=== PATIENT | male | born 1970 | race Caucasian/White ===

== ENCOUNTER 2017-08-19 14:15 | Emergency (ER) | payer MEDICARE, MEDICAID ==
[~2017-08-19] VITALS: Ht 175.3 cm; Wt 106.8 kg
[~2017-08-19 14:15] MED LIST: ARIP5TAB49; BACDS PO; BACL20TA84; BENZ-16 PO; CEPH-571 PO; CHLO25CA10 PO; CITA40TA; FAMO-1 PO; FAMO20TA41 PO; FAMO20TA44 PO; HYDR-3965 PO; LOPE1TAB46 PO; LORA1TAB; NORT25CA87; OMEP20CA10 PO; PRED20TA PO; SUCR1ORA2 PO
[2017-08-19 14:38] VITALS: BP 145/103
[2017-08-19] MEDS ORDERED: IBUP-1984 PO (16:57)
== END 2017-08-19 17:09 | disposition home or self-care (01) ==
LOC: ER 14:16
DX: M25.561 Pain in right knee (principal); I10 Essential (primary) hypertension; F12.10 Cannabis abuse, uncomplicated; Z59.0 Homelessness; Z56.0 Unemployment, unspecified; Z79.899 Other long term (current) drug therapy
CPT/HCPCS: 29505; 73564; 99284

== ENCOUNTER 2021-02-25 09:55 | Emergency (ER) | payer MEDICARE, MEDICAID ==
[~2021-02-25] VITALS: Ht 175.3 cm; Wt 91.8 kg
[~2021-02-25 09:55] MED LIST changes: -OMEP20CA10 PO; +OMEP20CA15 PO
[2021-02-25 10:11] VITALS: BP 150/87
== END 2021-02-25 12:54 | disposition home or self-care (01) ==
LOC: ER 09:55
DX: M79.642 Pain in left hand (principal); F41.9 Anxiety disorder, unspecified; I10 Essential (primary) hypertension; F32.9 Major depressive disorder, single episode, unspecified; F17.200 Nicotine dependence, unspecified, uncomplicated; F12.90 Cannabis use, unspecified, uncomplicated; Z98.890 Other specified postprocedural states; Z72.89 Other problems related to lifestyle; Z56.0 Unemployment, unspecified; Z79.2 Long term (current) use of antibiotics; Z79.899 Other long term (current) drug therapy
CPT/HCPCS: 73130; 99283

== ENCOUNTER 2021-09-10 11:58 | Emergency (ER) | payer MEDICARE, MEDICAID ==
[~2021-09-10] VITALS: Ht 175.3 cm; Wt 99.0 kg
[2021-09-10 12:23] VITALS: BP 123/78
== END 2021-09-10 13:35 | disposition home or self-care (01) ==
LOC: ER 11:58
DX: S66.912A Strain of unspecified muscle, fascia and tendon at wrist and hand level, left hand, initial encounter (principal); S66.911A Strain of unspecified muscle, fascia and tendon at wrist and hand level, right hand, initial encounter; G56.03 Carpal tunnel syndrome, bilateral upper limbs; F12.90 Cannabis use, unspecified, uncomplicated; Z87.19 Personal history of other diseases of the digestive system; Z72.89 Other problems related to lifestyle; Z56.0 Unemployment, unspecified; Z98.890 Other specified postprocedural states; Z79.899 Other long term (current) drug therapy; Z79.2 Long term (current) use of antibiotics; X58.XXXA Exposure to other specified factors, initial encounter; Y93.89 Activity, other specified; Y92.89 Other specified places as the place of occurrence of the external cause; Y99.8 Other external cause status
CPT/HCPCS: 29260; 99283; L3908; 29125

== ENCOUNTER 2021-10-29 07:30 | Emergency (ER) | payer MEDICARE, MEDICAID ==
[~2021-10-29] VITALS: Ht 175.3 cm; Wt 100.0 kg
[2021-10-29 07:34] VITALS: BP 141/85
[2021-10-29] MEDS ORDERED: GABA-530 PO (09:32)
[2021-10-29] MEDS ORDERED: ACYC-129 PO (09:32)
== END 2021-10-29 09:39 | disposition home or self-care (01) ==
LOC: ER 07:30
DX: B02.9 Zoster without complications (principal); I10 Essential (primary) hypertension; F31.9 Bipolar disorder, unspecified; Z56.0 Unemployment, unspecified; Z79.899 Other long term (current) drug therapy
CPT/HCPCS: 99283

== ENCOUNTER 2024-01-21 07:51 | Day surgery (SDC) | payer MEDICARE, MEDICAID ==
[2024-01-14 12:07] LABS: BASOPHILS # (AUTO) 0.1 X10'3 (0-0.2); BASOPHILS % (AUTO) 0.7 % (0-1); EOSINOPHILS # (AUTO) 0.2 X10'3 (0-0.9); EOSINOPHILS % (AUTO) 2.3 % (0-6); LYMPHOCYTES # (AUTO) 6.4 X10'3 (1.1-4.8); LYMPHOCYTES % (AUTO) 64.8 % (21-51); MEAN CORPUSCULAR HGB CONC 33.8 g/dL (33.0-36.5); MEAN CORPUSCULAR VOLUME 88.6 FL (78-98); MEAN PLATELET VOLUME 7.9 FL (7.4-10.4); MONOCYTES # (AUTO) 0.4 X10'3 (0-0.9); MONOCYTES % (AUTO) 4.2 % (2-12); NEUTROPHILS # (AUTO) 2.8 X10'3 (1.8-7.7); PRE OP HEMATOCRIT 44.4 % (42.0-52.0); PRE OP PLATELET COUNT 243 X10'3 (140-440); PRE OP WHITE BLOOD COUNT 9.9 10'3 (4.8-10.8); RED BLOOD COUNT 5.01 X10'6 (4.70-6.10); RED CELL DISTRIBUTION WIDTH 13.6 % (11.5-14.5)
[2024-01-14 12:15] LABS: ALBUMIN/GLOBULIN RATIO 1.2 (1.1-1.5); ALKALINE PHOSPHATASE 74 IU/L (46-116); BLOOD UREA NITROGEN 8 MG/DL (7-18); BUN/CREATININE RATIO 11.1 (10.0-20.0); CALCIUM 9.2 MG/DL (8.5-10.1); CHLORIDE 102 MMOL/L (99-107); CREATININE 0.72 MG/DL (0.60-1.10); PRE OP ALT 27 U/L (30-65); PRE OP ANION GAP 8 (8-16); PRE OP AST 8 U/L (10-37); PRE OP BILIRUB, TOTAL 0.3 MG/DL (0.0-1.0); PRE OP GLUCOSE 110 MG/DL (70-104); PRE OP POTASSIUM 4.2 MMOL/L (3.4-5.1); PRE OP SODIUM 136 MMOL/L (135-145); TOTAL CARBON DIOXIDE 26.2 MMOL/L (24-32); TOTAL PROTEIN 7.3 G/DL (6.4-8.2); eGFR > 90 ML/MIN
[2024-01-14 13:17] LABS: TOTAL CELLS COUNTED 100
[2024-01-14 13:18] LABS: PLATELET ESTIMATE NORMAL
[2024-01-14 13:20] LABS: SMUDGE CELLS 2+
[2024-01-21] VITALS (13 sets, daily range): BP systolic 129–168; BP diastolic 77–104; PULSE 70–88; RESP 9–16; TEMP 98.6; O2SAT 93–98
[~2024-01-21] VITALS: Ht 175.3 cm; Wt 112.9 kg
[~2024-01-21 07:51] MED LIST changes: -ARIP5TAB49; -BACDS PO; -BACL20TA84; -BENZ-16 PO; -CEPH-571 PO; -CHLO25CA10 PO; -CITA40TA; -FAMO-1 PO; -FAMO20TA41 PO; -FAMO20TA44 PO; -HYDR-3965 PO; +KRIL500C PO; +LISI30TA4 PO; -LOPE1TAB46 PO; -LORA1TAB; +LORA1TAB PO; +MULT-1085 PO; -NORT25CA87; -OMEP20CA15 PO; -PRED20TA PO; +QUET25TA36 PO; -SUCR1ORA2 PO
[2024-01-21] MEDS: ringers solution, lacted 1,000 ML IV SCH (08:46)
[2024-01-21] MEDS: famotidine 20mg tablet PO ONE (08:47)
[2024-01-21] MEDS: cefazolin 2gm/D5W 100mL 100 ML IV ONE (08:47)
[2024-01-21] MEDS ORDERED: sevoflurane 250ml liquid IH ONE (10:54)
[2024-01-21] MEDS ORDERED: rocuronium 10mg/ml inj IV ONE (11:00)
[2024-01-21] MEDS ORDERED: propofol inj 20 ML IV ONE (11:00)
[2024-01-21] MEDS ORDERED: fentaNYL/PF 50MCG/1 ML 2ML syringe ONE (11:00)
[2024-01-21] MEDS ORDERED: LIDOcaine 2% (20mg/ml) 5ml vial ONE (11:00)
[2024-01-21] MEDS ORDERED: ondansetron/PF 4mg/2ml inj ONE (11:00)
[2024-01-21] MEDS ORDERED: labetalol 20mg/4ml (5mg/ml) syringe IV ONE (11:12)
[2024-01-21] MEDS: BUPIVAcaine/PF 2.5mg/ml (0.25%) 10ml vial ONE (11:15)
[2024-01-21] MEDS: BUPIVACAINE liposomal/PF 13.3 MG/ML vial IM ONE (11:15)
[2024-01-21] MEDS: BUPIVAcaine 2.5mg/ml inj 50ml vial (contains preservative) ONE (11:16)
[2024-01-21] MEDS: LIDOcaine 1% 30ml preserv. free vial ONE (11:16)
[2024-01-21] MEDS: acetaminophen 1,000mg/100ml IV 100 ML IV ONE (12:11)
[2024-01-21] MEDS ORDERED: acetaminophen 1,000mg/100ml IV 100 ML IV ONE (12:20)
[2024-01-21] MEDS ORDERED: ringers solution, lacted 1,000 ML IV SCH (12:20)
[2024-01-21] MEDS ORDERED: hydrALAZINE 20mg/ml inj. IV PRN (12:20)
[2024-01-21] MEDS ORDERED: fentaNYL/PF 50MCG/1 ML 2ML syringe IV PRN ×2 (12:20)
[2024-01-21] MEDS ORDERED: labetalol 20mg/4ml (5mg/ml) syringe IV PRN (12:20)
[2024-01-21] MEDS ORDERED: ondansetron/PF 4mg/2ml inj IV PRN (12:20)
[2024-01-21] MEDS ORDERED: morphine 4 MG/ML inj SYRINge IV PRN (12:20)
[2024-01-21] MEDS: morphine 2 MG/ML inj. syringe IV PRN (12:31)
[2024-01-21] MEDS: oxyCODONE/APAP 5-325mg tablet PO PRN (12:59)
== END 2024-01-21 13:40 | disposition home or self-care (01) ==
LOC: PAS 07:51
PROVIDERS: ATTEND Surgery
DX: K42.0 Umbilical hernia with obstruction, without gangrene (principal); G89.18 Other acute postprocedural pain; I10 Essential (primary) hypertension; E11.9 Type 2 diabetes mellitus without complications; E66.3 Overweight; F41.9 Anxiety disorder, unspecified; F32.A Depression, unspecified; Z86.73 Personal history of transient ischemic attack (TIA), and cerebral infarction without residual deficits; Z79.899 Other long term (current) drug therapy; Z98.890 Other specified postprocedural states; Z68.36 Body mass index [BMI] 36.0-36.9, adult
CPT/HCPCS: 36415; 49594; 64488; 80053; 82948; 85025; 93005; C1781; C9290; J0131; J0690; J1100; J2270; J2405; J2704; J2710; J3010; J3490; J7030; J7120; Z7506; Z7508; Z7512; 85007; A4215; A4618

== ENCOUNTER 2025-01-02 13:14 | Emergency (ER) | payer MEDICARE, MEDICAID ==
[~2025-01-02] VITALS: Ht 175.3 cm; Wt 120.5 kg
[2025-01-02 13:23] VITALS: BP 131/81; PULSE 89; RESP 14; TEMP 98.3; O2SAT 94
--- NOTE | 2025-01-02 14:42 | Physician Documentation ---
History of Present Illness ~ Chief Complaint: Multiple Medical Complaints Stated Complaint: HEADACHE Time Seen by MD: 14:24 OK to notify your PCP?: Yes Primary Medical Doctor: [facility], [facility] Source: patient Mode of Arrival: POV Exam Limitations: no limitations HPI 54-year-old male with multiple chief complaints states that he has had progressive decrease in his vision and progressive eye pain from his left and right eye in his concerned that he may have herpes of his eyes. He states he has some sensitivity to light. He recently was seen by an spot cleaner and fitted for glasses. Patient also reports having headaches as well as neck pain x "quite some time" getting progressively more frequent. Denies worst headache of his life. Denies any precipitating injury or event. He decided to bring this up today because he was worried that the decrease in his vision in his headaches were related. Patient also reports a rash on his forehead and on the side of his nose on the right side that has been going on for quite some time he has been applying [id number] cream which he states is similar to elevate area which has not been helping. 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 Patient also reports right elbow pain that started a month ago after he started doing biceps curls at the gym. He stopped doing the bicep curls but the pain has persisted. Pain is localized to the elbow no swelling or redness. No decrease in range of motion of his elbow. Medication Reconciliation Allergies: Coded Allergies: No Known Allergies (Unverified , 12/18/16) Scheduled Krill Oil (Krill Oil), 500 MG PO DAILY, (Reported) Lisinopril (Lisinopril), 1 TAB PO DAILY, (Reported) Multivitamin (Multi Vitamin Daily), 1 EACH PO DAILY, (Reported) Quetiapine Fumarate (Quetiapine Fumarate), 1 TAB PO HS, (Reported) Scheduled PRN Lorazepam (Lorazepam), 0.5-1 TAB PO DAILY PRN for for anxiety/agitation, ( Reported) Past Medical History Past Medical History: Hypertension, Diverticulosis, Hernia, Leukemia, Anxiety, Depression Past Surgical History: other Other Past Surgical History: hernia repair Alcohol Use: Occasionally Drug Use: marijuana Lives with: Other Lives In: Home Occupation: unemployed Review of Systems All Other Systems at this time: Reviewed and Negative Physical Exam Vital Signs: Temperature: 98.3, Source: Temporal, Heart Rate: 89, Respiratory Rate: 14, BP: 131/81, Pulse Oximetry: 94, Weight: 120.450 Oxygen Flow Rate: 0 Physical Exam GENERAL: Alert, no acute distress. HEENT: NCAT, EOMI, PERRL, bulbar conjunctiva clear, no increased injection, no photophobia. Right proximal nasolabial fold there is a macular slightly erythematous scaly rash, this same rash is also along proximal forehead where forehead meets scalp. No plaques. NECK: Supple, trachea midline. CARDIAC: Regular rate and rhythm, no murmurs, rubs, or gallops. Equal distal pulses. No lower extremity edema, cap refill less than 2 seconds. RESPIRATORY: Equal breath sounds, clear to auscultation bilaterally, no respiratory distress. GASTROINTESTINAL: Normoactive bowel sounds x4 quadrants, non distended, soft, nontender, No guarding or rebound. MUSCULOSKELETAL: Normal range of motion of right elbow, wrist and shoulder and normal inspection of right elbow. Moving cervical spine around normally. Normal gait. NEUROLOGICAL: Awake, alert, and oriented x 3. cn 2-12 intact. SKIN: Warm/dry, no pallor, no rash. PSYCH: Alert and appropriate. Affect congruent with mood. Speech is clear. Good eye contact. Progress Results/Orders Results/Orders Vital Signs 01/02/25 13:23 Temp 98.3 Pulse 89 Resp 14 B/P (MAP) 131/81 Pulse Ox 94 O2 Flow Rate 0 Medical Decision Making Additional Comment Eye pain with sensitivity to light gradual in onset I understand that patient is concerned about herpes infection of his eye however I explained that that is a more acute presentation and what he has been dealing with has been gradual and progressive. He has already been seen by an spot cleaner and had eye pressures evaluated which were negative. He may have an ocular migraine but this would be unlikely considering his symptoms have been gradual and progressive now for months. Unclear etiology but no urgent or emergent findings on exam or with his history. Rash on face and scalp no findings on exam is not consistent with psoriasis as not plaques. Most consistent with a type of periorificial dermatitis. Not consistent with rosacea due to being on hairline near scalp as well as area near nose. Headaches with neck pain no red flag signs or symptoms on exam not worst headache of his life no reason for urgent imaging in the ER. May be due to occipital neuralgia. Right elbow pain most consistent with cubital tunnel versus tendinitis no history of trauma no sign on exam of septic joint no redness and no precipitating trauma. Departure Time of Disposition: 14:42 Disposition: 01 HOME / SELF CARE / HOMELESS Impression: Primary Impression: Eye pain Qualified Codes: H57.13 - Ocular pain, bilateral Additional Impressions: Perioral dermatitis Elbow pain, right Persistent headaches Neck pain Condition: Stable Discharge Instructions: General Discharge Instructions Additional Instructions: Eye pain with sensitivity to light gradual in onset I understand that patient is concerned about herpes infection of his eye however I explained that that is a more acute presentation and what he has been dealing with has been gradual and progressive. He has already been seen by an spot cleaner and had eye pressures evaluated which were negative. He may have an ocular migraine but this would be unlikely considering his symptoms have been gradual and progressive now for months. Unclear etiology but no urgent or emergent findings on exam or with his history. F/u with PCP for referral to neurology. Rash on face and scalp no findings on exam is not consistent with psoriasis as not plaques. Most consistent with a type of periorificial dermatitis. Not consistent with rosacea due to being on hairline near scalp as well as area near nose. Get referral by your PCP to see ware server. Headaches with neck pain no red flag signs or symptoms on exam not worst headache of his life no reason for urgent imaging in the ER. May be due to occipital neuralgia. Follow up with PCP. Right elbow pain most consistent with cubital tunnel versus tendinitis no history of trauma no sign on exam of septic joint no redness and no precipitating trauma. f/u with PCP for emg study and referral to physical the rapy. Referrals: NO PRIMARY CARE PROVIDER (PCP) Prescriptions Metronidazole Top. Cream* (Metrogel 0.75% Topical Cream*) 45 Gm Tube 1 APPLIC TOP Q12H for 30 Days, #45 GM ignore above instructions and follow these instructions: apply to skin on right side of nose once day, if tolerated, may increase to twice daily. Prov: SAM CRISTINA 01/02/25 Education Educated: Patient Educated regarding: diagnosis, treatment, need for follow up Signature Scribe Signature: x Attestation: x SAM CRISTINA Jan 02, 2025 14:42
[2025-01-02] MEDS ORDERED: MET0.75G TOP (14:46)
== END 2025-01-02 14:56 | disposition home or self-care (01) ==
LOC: ER 13:15
DX: L71.0 Perioral dermatitis (principal); H57.13 Ocular pain, bilateral; M54.2 Cervicalgia; M25.521 Pain in right elbow; I10 Essential (primary) hypertension; F12.90 Cannabis use, unspecified, uncomplicated; F41.9 Anxiety disorder, unspecified; F32.A Depression, unspecified; Z95.1 Presence of aortocoronary bypass graft; Z98.890 Other specified postprocedural states; Z79.899 Other long term (current) drug therapy; Z72.89 Other problems related to lifestyle
CPT/HCPCS: 99283